=== PATIENT | male | born 1995 | race Caucasian/White ===

== ENCOUNTER 2018-09-23 23:14 | Emergency (ER) | payer SELFPAY ==
[~2018-09-23] VITALS: Ht 175.3 cm; Wt 93.4 kg
[2018-09-23 23:20] VITALS: BP 151/58
--- NOTE | 2018-09-23 23:28 | NUR ---
PT AMBULATED W/ STEADY GAIT TO BED 11, STREP THROAT SWAB COLLECTED AND PLACED IN RED LAB BIN.
--- NOTE | 2018-09-23 23:43 | NUR ---
PT TO ED WITH C/O SORE THROAT X 1 DAY. REPORTS PAIN UPON SWALLOWING. MILD SWELLING AND REDNESS TO THROAT NOTED. PT PLACED INTO BED, PENDING MD HEBERT.
[2018-09-24] MEDS ORDERED: IBUPROFEN 800 MG TAB PO ONE (00:20)
[2018-09-24 00:26] VITALS: BP 151/58
--- NOTE | 2018-09-24 00:27 | NUR ---
Patient discharged with v/s stable. Written and verbal after care instructions given and explained. Patient alert, oriented and verbalized understanding of instructions. Ambulatory with steady gait. All questions addressed prior to discharge. ID band removed. Patient advised to follow up with PMD. Rx of PREDNISONE AND IBUPROFEN given. Patient educated on indication of medication including possible reaction and side effects. Opportunity to ask questions provided and answered.
== END 2018-09-24 00:26 | disposition home or self-care (01) ==
LOC: MED 23:14
DX: J02.8 Acute pharyngitis due to other specified organisms (principal); B97.89 Other viral agents as the cause of diseases classified elsewhere
CPT/HCPCS: 86308; 87081; 99283